=== PATIENT | female | born 1935 | race Caucasian/White ===

== ENCOUNTER 2022-06-18 15:06 | Observation (INO) ==
[2022-06-18] MEDS ORDERED: cefTRIAXone 1,000 MG in SODIUM CHLORIDE 0.9% 100 ML IV ONE (15:35)
[2022-06-18] MEDS ORDERED: cefTRIAXone 1,000 MG VIAL ONE (15:43)
[2022-06-18] MEDS ORDERED: propofoL 200 MG/20 ML VIAL IV ONE (15:58)
[2022-06-18] MEDS ORDERED: LIDOCAINE 2% 5 ML VIAL ONE (15:58)
[2022-06-18] MEDS ORDERED: DEXAMETHASONE 4 MG/1 ML VIAL ONE (15:58)
[2022-06-18] MEDS ORDERED: ONDANSETRON 4 MG/2 ML VIAL ONE (15:58)
[2022-06-18 16:00] LABS: Basophils % 0.4 % (0.0-0.8); Eosinophils % 0.4 % (0.00-10.9); Hematocrit 44.4 VOL% (35.7-47.0); Hemoglobin 14.2 GM/DL (12.0-16.0); Immature Granulocytes % 0.8 %; Immature Granulocytes Absolute 0.06 #; Lymphocytes # 1.5 10*3/uL (1.4-4.0); Lymphocytes % 19.1 % (21.3-54.2); Mean Corpuscular Volume 91.4 FL (87-102); Mean Platelet Volume 9.7 FL (9.6-12.0); Monocytes # 0.8 10*3/uL (0.11-0.8); Monocytes % 10.3 % (1.7-12.7); Platelet Count 250 T/CUMM (130-400); Red Blood Count 4.86 MC/CUMM (3.8-5.5); Red Cell Distribution Width 13.2 % (9.3-17.3); White Blood Count 7.6 T/CUMM (4-12)
[2022-06-18] MEDS ORDERED: LACTATED RINGERS 1,000 ML IV SCH (16:00)
[2022-06-18] MEDS ORDERED: FAMOTIDINE 20 MG/2 ML VIAL IV ONE (16:02)
[2022-06-18] MEDS ORDERED: SIMETHICONE CHEW 125 MG TABLET PO PRN (16:05)
[2022-06-18] MEDS ORDERED: oxyCODONE/ACETAMINOPHEN 5-325 MG TABLET PO PRN (16:05)
[2022-06-18] MEDS ORDERED: PROMETHAZINE 25 MG/1 ML VIAL IM PRN (16:05)
[2022-06-18] MEDS ORDERED: ONDANSETRON 4 MG/2 ML VIAL IV PRN (16:05)
[2022-06-18 16:13] LABS: Albumin 3.5 G/DL (3.4-5.0); Bilirubin,Total 0.7 MG/DL (0.20-1.00); Calcium 11.9 MG/DL (8.5-10.1); Osmolality,Calculated 275.7 MOS/KG (273-304); Potassium 3.6 MMOL/L (3.5-5.1); Total Protein 7.8 G/DL (6.4-8.2)
[2022-06-18] MEDS ORDERED: cefTRIAXone 1,000 MG in SODIUM CHLORIDE 0.9% 100 ML IV SCH (16:30)
[2022-06-18] MEDS ORDERED: SEVOFLURANE 1 UNIT/15 MINUTE INH ONE (16:36)
[2022-06-18] MEDS: SODIUM CHLORIDE 0.9% 1,000 ML IV SCH (17:27)
[2022-06-18] MEDS: ACETAMINOPHEN 325 MG TABLET PO SCH ×2 (17:39→22:17)
[2022-06-18] MEDS: DOCUSATE SODIUM 100 MG CAPSULE PO SCH (21:19)
[2022-06-19] MEDS: ACETAMINOPHEN 325 MG TABLET PO SCH ×4 (04:35→22:15)
[2022-06-19 06:19] LABS: Basophils % 0.2 % (0.0-0.8); Hematocrit 40.7 VOL% (35.7-47.0); Hemoglobin 13.1 GM/DL (12.0-16.0); Immature Granulocytes % 0.9 %; Immature Granulocytes Absolute 0.06 #; Lymphocytes # 0.9 10*3/uL (1.4-4.0); Lymphocytes % 13.3 % (21.3-54.2); Mean Corpuscular HGB Conc 32.2 GM/DL (32-36); Mean Corpuscular Volume 91.9 FL (87-102); Mean Platelet Volume 9.9 FL (9.6-12.0); Monocytes # 0.4 10*3/uL (0.11-0.8); Monocytes % 5.6 % (1.7-12.7); Platelet Count 238 T/CUMM (130-400); Red Blood Count 4.43 MC/CUMM (3.8-5.5); Red Cell Distribution Width 13.2 % (9.3-17.3); White Blood Count 6.4 T/CUMM (4-12)
[2022-06-19 06:40] LABS: Calcium 10.5 MG/DL (8.5-10.1); Osmolality,Calculated 279.4 MOS/KG (273-304)
[2022-06-19] MEDS ORDERED: LACTATED RINGERS 1,000 ML IV SCH (08:30)
[2022-06-19] MEDS ORDERED: LIDOCAINE 2% 5 ML VIAL ONE (09:02)
[2022-06-19] MEDS ORDERED: ETOMIDATE 40 MG/20 ML VIAL IV ONE (09:02)
[2022-06-19] MEDS ORDERED: propofoL 200 MG/20 ML VIAL IV ONE (09:02)
[2022-06-19] MEDS ORDERED: SEVOFLURANE 1 UNIT/15 MINUTE INH ONE (09:02)
[2022-06-19] MEDS: DOCUSATE SODIUM 100 MG CAPSULE PO SCH ×2 (13:30→20:13)
[2022-06-19] MEDS ORDERED: cefTRIAXone 1,000 MG in SODIUM CHLORIDE 0.9% 100 ML IV SCH (15:00)
[2022-06-20] MEDS: SODIUM CHLORIDE 0.9% 1,000 ML IV SCH ×4 (03:53→09:39)
[2022-06-20] MEDS: ACETAMINOPHEN 325 MG TABLET PO SCH ×2 (04:01→09:40)
[2022-06-20] MEDS: DOCUSATE SODIUM 100 MG CAPSULE PO SCH (09:40)
[2022-06-20 11:56] VITALS: BP 142/54
== END 2022-06-20 12:52 | disposition home or self-care (01) ==
LOC: N.OR 15:06 → N.2W 15:06 → N.SDSINP 15:06 → N.2W 17:23
PROVIDERS: ADMIT Surgery; ATTEND Surgery